=== PATIENT | male | born 1970 | race Caucasian/White ===

== ENCOUNTER 2019-11-22 15:31 | Emergency (ER) | payer SELFPAY ==
[~2019-11-22 15:31] MED LIST: Iopamidol 370 76% 100 ML VIAL ONE
[2019-11-22 16:02] LABS: #Basophils 0.1 thou/uL (0.0-0.2); #Eosinphils 0.1 thou/uL (0.0-0.7); #Lymphocytes 2.2 thou/uL (1.20-3.40); #Monocytes 0.5 thou/uL (0.11-0.59); #Neutrophils 4.5 thou/uL (1.40-6.50); %Basophils 1.2 % (0.0-1.0); %Eosinophils 1.6 % (0.0-10.0); %Lymphocytes 29.3 % (21.0-51.0); %Monocytes 6.5 % (0.0-10.0); %Neutrophils 61.3 % (42.0-75.0); Hemoglobin 14.7 g/dL (14.0-18.0); Mean Corpuscular HGB CONC 33.5 g/dL (32.0-36.0); Mean Corpuscular Hemoglobin 27.7 pg (27.0-31.0); Mean Corpuscular Volume 82.8 fL (78.0-98.0); Mean Platelet Volume 9.8 fL (7.4-10.4); Platelet Count 208 thou/uL (130-400); RBC Distribution Width 11.4 % (11.5-14.5); White Blood Cell (WBC) Count 7.4 thou/uL (4.8-10.8)
[2019-11-22 16:18] LABS: ALT (SGPT) 29 U/L (8-55); AST (SGOT) 20 U/L (5-34); Albumin 4.4 g/dL (3.5-5.0); Alkaline Phosphatase 118 U/L (40-110); Anion Gap 17 mmol/L (10-20); BUN (Urea Nitrogen) 15 mg/dL (8.9-20.6); Bilirubin, Total 0.3 mg/dL (0.2-1.2); CK (CPK) 136 U/L (30-200); Calc. Creatinine Clearance 0 mL/min (70-130); Calcium 9.6 mg/dL (7.8-10.44); Carbon Dioxide 23 mmol/L (22-29); Chloride 100 mmol/L (98-107); Estimated GFR-MDRD 51; Globulin 3.1 g/dL (2.4-3.5); Glucose 355 mg/dL (70-105); Lipase 27 U/L (8-78); Potassium 4.3 mmol/L (3.5-5.1); Protein, Total 7.5 g/dL (6.0-8.3); Sodium 136 mmol/L (136-145)
[2019-11-22] MEDS ORDERED: Ketorolac Tromethamine 30 MG/ML VIAL ONE (16:39)
--- NOTE | 2019-11-22 17:14 | CT ---
Exam: CT angiogram of the chest HISTORY: Chest pain. COMPARISON: None TECHNIQUE: CT angiogram of the chest is performed in the axial plane. Three-dimensional reformatted i mages are submitted for interpretation FINDINGS: Mediastinum: No mass, lymphadenopathy or hematoma. HEART: Normal size. No significant pericardial fluid. Aorta: No aneurysm or dissection Upper solid abdominal viscera: No abnormality enhancement. Trachea and central bronchi: Patent Pleural spaces: No pleural effusion. There is a pleural-based irregularity adjacent to the minor fiss ure, measuring 0.5 cm. Focal area of pleural-based scar is suspected. Lung parenchyma: No masses or consolidation. Pneumothorax: None Osseous structures: No lytic or blastic lesions Pulmonary arteries:Adequate contrast opacification pulmonary arterial system to the level of the prox imal lobar arteries. Remainder the pulmonary system cannot be assessed due to poor timing of contrast bolus. No filling defect to suggest thromboembolism. IMPRESSION: 1. Small focus of pleural-based scarring adjacent to the minor fissure 2. Limited evaluation of the pulmonary arterial system due to poor timing of contrast bolus. No evide nce of a pulmonary artery embolism to the level of the proximal lobar arteries. The remainder the pulmonary artery system cannot be adequately assessed
== END 2019-11-22 17:25 | disposition home or self-care (01) ==
LOC: NAV ERS 15:31
DX: M25.512 Pain in left shoulder (principal); I10 Essential (primary) hypertension; E11.9 Type 2 diabetes mellitus without complications; E78.00 Pure hypercholesterolemia, unspecified; E78.5 Hyperlipidemia, unspecified; Z86.711 Personal history of pulmonary embolism; F17.220 Nicotine dependence, chewing tobacco, uncomplicated; Z91.14 Patient's other noncompliance with medication regimen; Z79.82 Long term (current) use of aspirin; X50.9XXA Other and unspecified overexertion or strenuous movements or postures, initial encounter
CPT/HCPCS: 71275; 80053; 82550; 83690; 84484; 85025; 85379; 93005; 96374; J1885; Q9967

== ENCOUNTER 2022-08-04 21:05 | Emergency (ER) | payer SELFPAY ==
[2022-08-04] MEDS ORDERED: traMADol HCl 50 MG TAB ONE (21:38)
== END 2022-08-04 23:14 | disposition home or self-care (01) ==
LOC: NAV ERS 21:05
DX: S29.011A Strain of muscle and tendon of front wall of thorax, initial encounter (principal); F17.220 Nicotine dependence, chewing tobacco, uncomplicated; X50.9XXA Other and unspecified overexertion or strenuous movements or postures, initial encounter
CPT/HCPCS: 71046

== ENCOUNTER 2024-03-29 14:32 | Emergency (ER) | payer SELFPAY ==
[2024-03-29] MEDS ORDERED: Ibuprofen 800 MG TAB ONE (14:55)
== END 2024-03-29 15:45 | disposition home or self-care (01) ==
LOC: NAV ERS 14:32
DX: H92.01 Otalgia, right ear (principal)
CPT/HCPCS: 99282